=== PATIENT | female | born 1985 | race Two or more races ===

== ENCOUNTER 2023-06-21 21:07 | Emergency (ER) | payer MEDICAID, OTHER ==
[~2023-06-21] VITALS: Ht 170.2 cm; Wt 81.0 kg
[2023-06-21 22:08] LABS: Basophils # (auto) 0.1 10 ^3/uL (0-0.2); Eosinophils # (auto) 0.3 10 ^3/uL (0-0.8); Eosinophils % (auto) 3.3 % (0.0-7.0); Nucleated Red Blood Cells % 0.1 %; White Blood Cell 9.9 10^3/uL (4.4-10.8)
[2023-06-21 22:10] LABS: Basophils % (auto) 0.9 % (0.0-2.0); Hematocrit 32.4 % (36.0-46.0); Hemoglobin 10.1 g/dL (12.2-16.2); Lymphocytes # (auto) 3.5 10 ^3/uL (0.4-5.4); Lymphocytes % (auto) 35.9 % (10.0-50.0); Mean Corpuscular Hemoglobin 24.1 pg (28.0-32.0); Mean Corpuscular Hgb Conc. 31.3 g/dL (32.0-36.0); Mean Corpuscular Volume 77.2 fL (80.0-100.0); Monocytes # (auto) 0.8 10 ^3/uL (0-1.3); Monocytes % (auto) 7.9 % (0.0-12.0); Neutrophils # (auto) 5.1 10 ^3/uL (1.6-8.6); Red Cell Distribution Width 17.2 % (11.8-14.3)
[2023-06-21 22:25] LABS: Alanine Aminotransferase 13 U/L (7-40); Albumin 4.5 g/dL (3.2-4.8); Alkaline Phosphatase 119 U/L (46-116); Anion Gap 10 (5-15); Aspartate Aminotransferase 15 U/L (13-40); BUN/Creatinine Ratio 10.2 (10.0-20.0); Bilirubin, Total 0.3 mg/dL (0.2-1.0); Blood Urea Nitrogen 11 mg/dL (9-23); Calcium 9.2 mg/dL (8.7-10.4); Carbon Dioxide 22 mmol/L (20-30); Chloride 108 mmol/L (98-107); Glucose 91 mg/dL (74-106); Magnesium 1.9 mg/dL (1.6-2.6); Potassium 3.9 mmol/L (3.5-5.1); Sodium 140 mmol/L (136-145); Total Protein 6.9 g/dL (5.7-8.2)
[2023-06-21 22:29] LABS: Urine Bacteria NONE SEEN /hpf (None Seen); Urine Blood Negative /uL (Negative); Urine Clarity Clear (Clear); Urine Color Yellow (Yellow); Urine Protein, UAD TRACE (Negative); Urine Specific Gravity 1.027 (1.001-1.035); Urine WBC 2 /hpf (0 - 5); Urine pH 6.5 (5.0-8.0)
[2023-06-22 01:30] VITALS: BP 135/94; TEMP 98.6
[2023-06-22 01:53] VITALS: PULSE 73; RESP 16; O2SAT 99
[2023-06-22] MEDS ORDERED: ONDANSETRON ODT 4 MG TAB PO ONE (02:00)
[2023-06-22] MEDS ORDERED: HYDROcodone-ACET 10/325MG TAB PO ONE (02:00)
[2023-06-22] MEDS ORDERED: IBUPROFEN 600 MG TAB PO ONE (02:00)
== END 2023-06-22 04:25 | disposition left against medical advice (07) ==
LOC: ER 21:07
DX: R51.9 Headache, unspecified (principal)
CPT/HCPCS: 36415; 80053; 81001; 83735; 84484; 85025; 93005; 99285; Q0162

== ENCOUNTER 2024-10-30 08:10 | Emergency (ER) | payer MEDICAID ==
[~2024-10-30] VITALS: Ht 170.2 cm; Wt 87.9 kg
[2024-10-30 08:51] VITALS: BP 115/83; PULSE 102; RESP 18; TEMP 98.2; O2SAT 99
--- NOTE | 2024-10-30 09:01 | ED.PDOC ---
History of Present Illness(SKN HPI Comments A 39 YEAR OLD FEMALE PRESENTS TO THE ED WITH COMPLAINT OF RASH. PATIENT STATES SHE BEGAN TO EXPERIENCE A GENERALIZED BODY RASH WITH ITCHING THAT STARTED TODAY. PATIENT IS CONCERNED SHE MAY BE HAVING AN ALLERGIC REACTION. PATIENT DENIES FEVER, CHILLS, SHORTNESS OF BREATH, CHEST PAIN, ABDOMINAL PAIN, NAUSEA, VOMITING, HEADACHE, OR OTHER COMPLAINTS. NO OTHER SYMPTOMS OR MODIFYING FACTORS AT THIS TIME. PATIENT IS ALERT, ORIENTED X 4, AND HAS STEADY GAIT. Chief Complaint: Rash Time Seen by MD: 08:29 History of Present Illness: Nurses Notes, Medications, Allergies Allergies: Coded Allergies: Metoclopramide (Verified Allergy, Unknown, 06/21/23) Morphine (Verified Allergy, Unknown, 06/21/23) Home Meds Active Scripts Hydroxyzine Hcl (Hydroxyzine Hcl) 50 Mg Tab, 1 TAB PO BID, #24 TAB Prov:RENATE MARQUEZ 10/30/24 Methylprednisolone (Medrol Dosepak) 4 Mg Gucci, 4 MG PO UD, #21 TAB UAD Prov:RENATE MARQUEZ 10/30/24 Information Source: Patient Mode of Arrival: Ambulatory Severity: Moderate Timing: Days Duration: Since onset, Days Prehospital treatment: None Location: Generalized Mechanism: Spontaneous Onset Developed: Rash Occurence: Indoors Object: None Condition of Object: None Retained Foreign Body: No Wound Type: None Immunization Status of Animal: NA Tetanus: Unknown History of: None Associated Signs and Symptoms: Redness Past Medical History PAST MEDICAL HISTORY: Denies Surgical History: Denies all surgeries CARDIOVASCULAR TECHNICIAN History: No Pertinent CARDIOVASCULAR TECHNICIAN History Family History Family History: Reviewed,noncontributory to illness Social History Smoker: Non-Smoker Alcohol: Denies ETOH Use Drugs: Denies Drug Use Lives In: Home Constitutional: denies: chills, diaphoresis, fatigue, fever, malaise, sweats, weakness, others EENTM: denies: blurred vision, double vision, ear bleeding, ear discharge, ear drainage, ear pain, ear ringing, eye pain, eye redness, hearing loss, mouth pain, mouth swelling, nasal discharge, nose bleeding, nose congestion, nose pain, photophobia, tearing, throat pain, throat swelling, voice changes, others Respiratory: denies: cough, hemoptysis, orthopnea, SOB at rest, shortness of breath, SOB with excertion, stridor, wheezing, others Cardiovascular: denies: chest pain, dizzy spells, diaphoresis, Dyspnea on exertion, edema, irregular heart beat, left arm pain, lightheadedness, palpitations, PND, syncope, others Gastrointestinal: denies: abdomen distended, abdominal pain, blood streaked bowels, constipated, diarrhea, dysphagia, difficulty swallowing, hematemesis, melena, nausea, poor appetite, poor fluid intake, rectal bleeding, rectal pain, vomiting, others Genitourinary: denies: abnormal vagina bleeding, burning, dyspareunia, dysuria, flank pain, frequency, hematuria, incontinence, pain, , vagina discharge, urgency, others Neurological: denies: dizziness, fainting, headache, left sided numbness, left sided weakness, numbness, paresthesia, pre-existing deficit, right sided numbness, right sided weakness, seizure, speech problems, tingling, tremors, weakness, others Musculoskeletal: denies: back pain, gout, joint pain, joint swelling, muscle pain, muscle stiffness, neck pain, others Integumetry: reports: rash; denies: bruises, change in color, change in hair/nails, dryness, laceration, lesions, lumps, wounds, others Allergic/Immunocompromised: reports: Hives, Itching; denies: Difficulty Healing, Frequent Infections, others Hematologic/Lymphatic: denies: anemia, blood clots, easy bleeding, easy bruising, swollen glands, others Endocrine: denies: excessive hunger, excessive sweating, excessive thirst, excessive urination, flushing, intolerance to cold, intolerance to heat, unexplained weight gain, unexplained weight loss, others Psychiatric: denies: anxiety, bipolar disorder, depression, hopeless, panic disorder, schizophrenia, sleepless, suicidal, others All Other Systems: Reviewed and Negative Physical Exam General Appearance: No Apparent Distress, Normal HEENT: Normal ENT Inspection, PERRL/EOMI, Pharynx Normal, TMs Normal Neck: Full Range of Motion, Non-Tender, Normal, Normal Inspection Respiratory: Chest Non-Tender, Lungs Clear, No Accessory Muscle Use, No Respiratory Distress, Normal Breath Sounds Cardiovascular: No Edema, No JVD, No Murmur, No Gallop, Normal Peripheral Pulses, Regular Rate/Rhythm Breast Exam: Deferred Gastrointestinal: No Organomegaly, Non Tender, No Pulsatile Mass, Normal Bowel Sounds, Soft Genitalia: Deferred Pelvic: Deferred Rectal: Deferred Extremities: No calf tenderness, Normal capillary refill, Normal inspection, Normal range of motion, Non-tender, No pedal edema Musculoskeletal : Apperance: Normal Neurologic: Alert, migrant leader II-XII nml as Tested, No Motor Deficits, Normal Affect, Normal Mood, No Sensory Deficits Cerebellar Function: Normal Reflexes: Normal Skin: Dry, Normal Color, Rash (ERYTHEMA SKIN RASH WITH HIVES ON UPPER AND LOWER BODY REGION, NO TENDERNESS AND SWELLING. ), Warm Peripheral Pulses: 2+ carotid (R), 2+ carotid (L), 2+ Radial (R), 2+ Radial (L) Lymphatic: No Adenopathy Was a procedure done? Was a procedure done?: No Differential Diagnosis (INTG) Differential Diagnosis: N/A Differential Diagnosis: Atopic dermatitis, Contact Dermatitis, Scabies, Urt icaria Differential Diagnosis: N/A Abscess: N/A Differential Diagnosis: N/A X-Ray, Labs, Meds, VS Vital Signs Date Time Temp Pulse Resp B/P (MAP) Pulse Ox O2 Delivery O2 Flow Rate FiO2 10/30/24 08:51 102 18 99 Room Air 10/30/24 08:51 98.2 102 18 115/83 (94) 99 98.2 10/30/24 08:26 98.2 102 18 115/83 (94) 99 98.2 Current Medications Medications (Trade) Dose Ordered Sig/Sedrick Route Start Time Stop Time Status Last Admin Epinephrine HCl 0.3 mg ONCE ONCE SC 10/30/24 09:00 10/30/24 09:01 DC 10/30/24 09:04 Diphenhydramine HCl (Benadryl Injection) 50 mg ONCE ONCE IM 10/30/24 09:00 10/30/24 09:01 DC 10/30/24 09:04 X-Ray, Labs, Meds, VS Comment EXTERNAL MEDICAL RECORDS REVIEWED: [NONE] INDEPENDENT HISTORIANS: [NONE] SOCIAL DETERMINANTS OF HEALTH: [NONE] LABS ORDERED: NONE REVIEWED AND INTERPRETED RESULTS: NONE IMAGING ORDERED: NONE TREATMENTS ORDERED: EPINEPHRINE 0.3 MG IM, BENADRYL 50 MG IM PROCEDURES PERFORMED: NONE CRITICAL CARE TIME: NONE I HAVE DISCUSSED THE PATIENT WITH THE ATTENDING PHYSICIAN DR. SANTANA AND HE AGREES WITH THE PATIENT'S PLAN OF CARE AND DISPOSITION. BASED ON HISTORY OF PRESENT ILLNESS, AND PHYSICAL EXAM, PATIENT WILL BE DISCHARGED HOME. DISCUSSED PLAN FOR DISCHARGE HOME WITH RX [PREDNISONE AND VISTARIL 50MG]. MEDICATION WARNINGS GIVEN. SHARED DECISION MAKING: PATIENT INSTRUCTED TO FOLLOW UP WITH PRIMARY CARE PROVIDER IN 1-2 DAYS FOR RE-EVALUATION OF SYMPTOMS. PATIENT VERBALIZES UNDERSTANDING TO RETURN TO ED FOR NEW OR WORSENING SYMPTOMS OR IF FOLLOW UP WITH PCP CANNOT BE OBTAINED. PATIENT FEELS COMFORTABLE GOING HOME AT THIS TIME. ALL QUESTIONS ADDRESSED AT TIME OF DISCHARGE. Time of 1ST Reevaluation: 09:25 Reevaluation 1ST: Improved Patient Education/Counseling: Diagnosis, Treatment, Need For Follow Up Family Education/Counseling: Diagnosis, Treatment, Need For Follow Up Medical Screening: No EMC Exist At This Time Departure 1 Departure Time of Disposition: :30 Impression: Primary Impression: Allergic reaction Qualified Codes: T78.40XA - Allergy, unspecified, initial encounter Disposition: HOME / SELF CARE / HOMELESS Condition: Stable Additional Instructions: FOLLOW-UP WITH PCP IN 1 TO 2 DAYS. TAKE MEDICATIONS PRESCRIBED. RETURN TO ED FOR ANY NEW OR WORSENING SYMPTOMS. e-Prescriptions Hydroxyzine Hcl (Hydroxyzine Hcl) 50 Mg Tab 1 TAB PO BID, #24 TAB Prov: RENATE MARQUEZ 10/30/24 Methylprednisolone (Medrol Dosepak) 4 Mg Gucci 4 MG PO UD, #21 TAB UAD Prov: RENATE MARQUEZ 10/30/24 Discharged With: Self Critical Care Note Critical Care Time?: No Stability Stability form required: No I personally scribed for RENATE MARQUEZ ([email or web address]) on 10/30/24 at 09:01. Electronically submitted by Arias Guevara ([email or web address]). RENATE MARQUEZ Oct 30, 2024 09:01
[2024-10-30] MEDS: diphenhdrAMINE HCL 50 MG/1 ML VL IM ONE (09:04)
[2024-10-30] MEDS: EPINEPHrine HCL 1 MG/1 ML AMP SC ONE (09:04)
[2024-10-30] MEDS ORDERED: METH4PAK PO (09:19)
[2024-10-30] MEDS ORDERED: HYDR50TA69 PO (09:19)
== END 2024-10-30 09:27 | disposition home or self-care (01) ==
LOC: ER 08:10
DX: T78.40XA Allergy, unspecified, initial encounter (principal); Z79.899 Other long term (current) drug therapy; Z88.5 Allergy status to narcotic agent; Z88.8 Allergy status to other drugs, medicaments and biological substances; X58.XXXA Exposure to other specified factors, initial encounter
CPT/HCPCS: 96372; 99284; J0171; J1200

== ENCOUNTER 2025-02-05 08:23 | Emergency (ER) | payer SELFPAY ==
[~2025-02-05] VITALS: Ht 170.2 cm; Wt 85.5 kg
[~2025-02-05 08:23] MED LIST: HYDR50TA69 PO; METH4PAK PO
--- NOTE | 2025-02-05 08:57 | ED.PDOC ---
HPI (NEURO) HPI Comments This is a 40 year old female presents to the ED with chief complaint of dizziness. Patient reports that she has been experiencing intermittent dizziness with a feeling like the room is spinning for the past 2 weeks. Patient relays that she has an associated headache with her dizziness. Patient denies any N/V, chest pain, SOB, fever, chills, nasal congestion, or ear pain. Chief Complaint: Dizziness Time Seen by MD: 08:43 Reviewed Notes: Nurses Notes, Medications, Allergies Information Source: Patient Mode of Arrival: Ambulatory Severity: Moderate Headache Severity: Mild Timing: Weeks Duration: Intermittent Prehospital treatment: None Headache Quality: Aching Headache Location: Generalized Onset: At rest Symptoms: Vertigo Past Medical History PAST MEDICAL HISTORY: Denies Surgical History (Other): Breast augmentation FUR REMODELER History: No Pertinent FUR REMODELER History Family History Family History: Reviewed,noncontributory to illness Social History Smoker: Cigarettes Alcohol: Occasionally Drugs: Denies Drug Use Lives In: Home Constitutional: denies: chills, diaphoresis, fatigue, fever, malaise, sweats, weakness, others EENTM: denies: blurred vision, double vision, ear bleeding, ear discharge, ear drainage, ear pain, ear ringing, eye pain, eye redness, hearing loss, mouth pain, mouth swelling, nasal discharge, nose bleeding, nose congestion, nose pain, photophobia, tearing, throat pain, throat swelling, voice changes, others Respiratory: denies: cough, hemoptysis, orthopnea, SOB at rest, shortness of breath, SOB with excertion, stridor, wheezing, others Cardiovascular: denies: chest pain, dizzy spells, diaphoresis, Dyspnea on exertion, edema, irregular heart beat, left arm pain, lightheadedness, palpitations, PND, syncope, others Gastrointestinal: denies: abdomen distended, abdominal pain, blood streaked bowels, constipated, diarrhea, dysphagia, difficulty swallowing, hematemesis, melena, nausea, poor appetite, poor fluid intake, rectal bleeding, rectal pain, vomiting, others Genitourinary: denies: abnormal vagina bleeding, burning, dyspareunia, dysuria, flank pain, frequency, hematuria, incontinence, pain, , vagina discharge, urgency, others Neurological: reports: dizziness, headache; denies: fainting, left sided numbness, left sided weakness, numbness, paresthesia, pre-existing deficit, right sided numbness, right sided weakness, seizure, speech problems, tingling, tremors, weakness, others Musculoskeletal: denies: back pain, gout, joint pain, joint swelling, muscle pain, muscle stiffness, neck pain, others Integumetry: denies: bruises, change in color, change in hair/nails, dryness, laceration, lesions, lumps, rash, wounds, others Allergic/Immunocompromised: denies: Difficulty Healing, Frequent Infections, Hives, Itching, others Hematologic/Lymphatic: denies: anemia, blood clots, easy bleeding, easy br uising, swollen glands, others Endocrine: denies: excessive hunger, excessive sweating, excessive thirst, excessive urination, flushing, intolerance to cold, intolerance to heat, unexplained weight gain, unexplained weight loss, others Psychiatric: denies: anxiety, bipolar disorder, depression, hopeless, panic disorder, schizophrenia, sleepless, suicidal, others All Other Systems: Reviewed and Negative Physical Exam General Appearance: No Apparent Distress, Normal HEENT: Normal ENT Inspection, Pharynx Normal, TM Abnormal (L), TM Abnormal (R), Other (Nystagmus with fast phase to the left eye. Fluid behind bilateral TMs. Maxillary frontal sinus dullness.) Neck: Full Range of Motion, Non-Tender, Normal, Normal Inspection Respiratory: Chest Non-Tender, Lungs Clear, No Accessory Muscle Use, No Respiratory Distress, Normal Breath Sounds Cardiovascular: No Edema, No JVD, No Murmur, No Gallop, Normal Peripheral Pulses, Regular Rate/Rhythm Breast Exam: Deferred Gastrointestinal: No Organomegaly, Non Tender, No Pulsatile Mass, Normal Bowel Sounds, Soft Genitalia: Deferred Pelvic: Deferred Rectal: Deferred Extremities: No calf tenderness, Normal capillary refill, Normal inspection, Normal range of motion, Non-tender, No pedal edema Musculoskeletal : Apperance: Normal Neurologic: Alert, mailing machine assistant II-XII nml as Tested, No Motor Deficits, Normal Affect, Normal Mood, No Sensory Deficits Cerebellar Function: Normal Reflexes: Normal Skin: Dry, Normal Color, Warm Lymphatic: No Adenopathy Was a procedure done? Was a procedure done?: No Differential Diagnosis (SZ) Headache: Cluster, Migraine, Epidural Hemorrhage, Intracerebral Hemorrhage, Subarachnoid Hemorrhage, Subdural Hemorrhage, Mass Lesion, Meningitis, Sinusitis, Other (bpv, central vertigo,) X-Ray, Labs, Meds, VS Vital Signs Date Time Temp Pulse Resp B/P (MAP) Pulse Ox O2 Delivery O2 Flow Rate FiO2 02/05/25 08:45 87 02/05/25 08:35 97.5 94 18 104/67 (79) 96 97.5 Lab Test 02/05/25 10:00 02/05/25 08:48 Range/Units Urine Test Negative Negative POC Glucose 108 H 70-106 mg/dl Time of 1ST Reevaluation: 09:43 Reevaluation 1ST: Unchanged Patient Education/Counseling: Diagnosis, Treatment, Prognosis, Need For Follow Up Family Education/Counseling: No Family Present Comments pt refused the head ct. her daughter is upset and she would like to leave Additional Information Previous visits reviewed: 10/30/24 for allergic reaction The following tests were ordered, and results were reviewed by me: CT Head, Preg Urine Additional Information was gathered from interviewing the following independent historians: None I reviewed and agreed with the following test results read by other providers: CT Head I discussed treatment and results with medical personnel and: patient Comprehensive systems review obtained and negative except for what is stated in the HPI. Departure 1 Departure Time of Disposition: 11:28 Impression: Primary Impression: Eustachian tube disorder Qualified Codes: H69.93 - Unspecified eustachian tube disorder, bilateral Additional Impressions: Cephalgia Qualified Codes: R51.9 - Headache, unspecified BPV (benign positional vertigo) Qualified Codes: H81.12 - Benign paroxysmal vertigo, left ear Disposition: HOME / SELF CARE / HOMELESS Condition: Stable e-Prescriptions Alprazolam (Xanax) 0.25 Mg Tb 1 TAB PO DAILY PRN for 2 Days, #2 TAB Prov: SARAH CRAFT MD 02/05/25 Ondansetron Odt 4MG Tab (ZOFRAN PO) 4 Mg Tb 4 MG PO Q4HP PRN for 2 Days, #10 TAB ODT TAB-DISSOLVE IN MOUTH, THEN SWALLOW Prov: SARAH CRAFT MD 02/05/25 Meclizine HCl (Meclizine 25) 25 Mg Tab 25 MG PO Q4HP PRN for 3 Days, #15 TAB Prov: SRAAH CRAFT MD 02/05/25 Discharged With: Self Critical Care Note Critical Care Time?: No Stability Stability form required: No Heart Score Heart Score: Heart Score Response (Comments) Value History N/A 0 EKG N/A 0 Age N/A 0 Risk Factors N/A 0 Troponin N/A 0 Total 0 I personally scribed for SARAH CRAFT MD ([email or web address]) on 02/05/25 at 08:57. Electronically submitted by Castro Joshua ([email or web address]). SARAH CRAFT MD Feb 05, 2025 08:57
[2025-02-05] MEDS ORDERED: ZOFR4T PO (11:30)
[2025-02-05] MEDS ORDERED: MECL1TAB42 PO (11:30)
[2025-02-05] MEDS ORDERED: ALPR0.25 PO (11:30)
[2025-02-05] MEDS: MECLIZINE HCL 25 MG TAB PO ONE (11:46)
[2025-02-05] MEDS: ALPRAZolam 0.25 MG TAB PO ONE (11:46)
[2025-02-05] MEDS: ONDANSETRON ODT 4 MG TAB PO ONE (11:47)
[2025-02-05 11:51] VITALS: BP 110/64; PULSE 86; RESP 20; TEMP 97.6; O2SAT 97
--- NOTE | 2025-02-05 12:00 | DVH ---
EXAM: CT HEAD WITHOUT CONTRAST INDICATION: headache, vertigo TECHNIQUE: CT of the head without intravenous contrast. Radiation Dose : 1. Head: CT Dose: CTDI volume is 65.3 mGy. Dose-length product is 1155.97 mGy*cm The dose indicators for CT are the volume Computed Tomography (CT) Dose Index (CTDIvol) and the Dose Length Product (DLP), and are measured in units of mGy and mGy-cm, respectively. These indicators are not patient dose, but values generated from the CT scanner acquisition factors. The report includes radiation exposure data for exposures received during this examination. COMPARISON: None FINDINGS: There is no evidence of acute intracranial hemorrhage, extra-axial collection, mass effect, midline s hift, herniation or hydrocephalus. The ventricles, sulci and cisterns are age appropriate. The thornton-white differentiation is intact. Patchy periventricular and subcortical white matter hypoattenuation is nonspecific but may be related to small vessel ischemic disease. The visualized paranasal sinuses and mastoid air cells are clear. The surrounding soft tissues and osseous structures are unremarkable. IMPRESSION: 1. No acute intracranial abnormality. Radiation optimization: All CT scans at this facility use at least one of these dose optimization fan hniques: automated exposure control mA and/or kV adjustment per patient size (includes targeted exam s where dose is matched to clinical indication) or iterative reconstruction.
--- NOTE | 2025-02-08 12:24 | ECG ---
[facility] Test Date: 2025-02-05 Test Time: 08:45:52 Pat Name: HETAL KAHN Department: ER Room: Gender: F Assistant Press Operator Offset: YOBANY : 1985 Requested By: SARAH CRAFT Order Number: [id number] Reading MD: Yuriy Adams Measurements Intervals [place] Rate: 87 P: 53 AR: 153 QRS: 65 QRSD: 83 T: 52 QT: 357 QTc: 430 Interpretive Statements Sinus rhythm Electronically Signed On 02-08-2025 22:40:41 PDT by Yuriy Adams Please click the below link to view image of tracing.
== END 2025-02-05 11:54 | disposition home or self-care (01) ==
LOC: ER 08:27
DX: H69.93 Unspecified Eustachian tube disorder, bilateral (principal); H81.12 Benign paroxysmal vertigo, left ear; R51.9 Headache, unspecified; F17.210 Nicotine dependence, cigarettes, uncomplicated
CPT/HCPCS: 70450; 81025; 82947; 93005; 99284; J8597; Q0162; 82962

== ENCOUNTER 2025-05-27 09:36 | Emergency (ER) | payer MEDICAID ==
[~2025-05-27] VITALS: Ht 170.2 cm; Wt 88.1 kg
[~2025-05-27 09:36] MED LIST changes: +ALPR0.25 PO; +MECL1TAB42 PO; +ZOFR4T PO
[2025-05-27 09:39] VITALS: BP 126/87; RESP 17; TEMP 97.6; O2SAT 100
[2025-05-27 10:03] VITALS: PULSE 71
--- NOTE | 2025-05-27 10:03 | ED.PDOC ---
Chief Complaint: Chest Pain Time Seen by MD: 10:00 Reviewed Notes: Nurses Notes, Medications, Allergies Allergies: Coded Allergies: Metoclopramide (Verified Allergy, Unknown, 06/21/23) Morphine (Verified Allergy, Unknown, 06/21/23) Home Meds Active Scripts Alprazolam (Xanax) 0.25 Mg Tb, 1 TAB PO DAILY PRN for 2 Days, #2 TAB Prov:SARAH CRAFT MD 02/05/25 Ondansetron Odt 4MG Tab (ZOFRAN PO) 4 Mg Tb, 4 MG PO Q4HP PRN for 2 Days, #10 TAB ODT TAB-DISSOLVE IN MOUTH, THEN SWALLOW Prov:SARAH CRAFT MD 02/05/25 Meclizine HCl (Meclizine 25) 25 Mg Tab, 25 MG PO Q4HP PRN for 3 Days, #15 TAB Prov:SARAH CRAFT MD 02/05/25 Hydroxyzine Hcl (Hydroxyzine Hcl) 50 Mg Tab, 1 TAB PO BID, #24 TAB Prov:RENATE MARQUEZ 10/30/24 Methylprednisolone (Medrol Dosepak) 4 Mg Gucci, 4 MG PO UD, #21 TAB UAD Prov:RENATE MARQUEZ 10/30/24 Information Source: Patient Mode of Arrival: Ambulatory Severity: Moderate Timing: Days Duration: Since onset, Days Prehospital treatment: None Location: Chest (L) Radiation: Arm (L) Quality: Sharp, Pressure Onset: At Rest Cardiac Risk Factors: None PE Risk Factors: None History of: None Associated Signs and Symptoms: None Past Medical History PAST MEDICAL HISTORY: Denies Surgical History (Other): BREAST AUGMUNTATION APPLICATION PACKAGING CONSULTANT History: No Pertinent APPLICATION PACKAGING CONSULTANT History Family History Family History: Reviewed,noncontributory to illness, Unknown Social History Smoker: Cigarettes Alcohol: Occasionally Drugs: Denies Drug Use Lives In: Home Constitutional: denies: chills, diaphoresis, fatigue, fever, malaise, sweats, weakness, others EENTM: denies: blurred vision, double vision, ear bleeding, ear discharge, ear drainage, ear pain, ear ringing, eye pain, eye redness, hearing loss, mouth pain, mouth swelling, nasal discharge, nose bleeding, nose congestion, nose pain, photophobia, tearing, throat pain, throat swelling, voice changes, others Respiratory: denies: cough, hemoptysis, orthopnea, SOB at rest, shortness of breath, SOB with excertion, stridor, wheezing, others Cardiovascular: reports: chest pain, left arm pain; denies: dizzy spells, diaphoresis, Dyspnea on exertion, edema, irregular heart beat, lightheadedness, palpitations, PND, syncope, others Gastrointestinal: denies: abdomen distended, abdominal pain, blood streaked bowels, constipated, diarrhea, dysphagia, difficulty swallowing, hematemesis, melena, nausea, poor appetite, poor fluid intake, rectal bleeding, rectal pain, vomiting, others Genitourinary: denies: abnormal vagina bleeding, burning, dyspareunia, dysuria, flank pain, frequency, hematuria, incontinence, pain, , vagina discharge, urgency, others Neurological: denies: dizziness, fainting, headache, left sided numbness, left sided weakness, numbness, paresthesia, pre-existing deficit, right sided numbness, right sided weakness, seizure, speech problems, tingling, tremors, weakness, others Musculoskeletal: denies: back pain, gout, joint pain, joint swelling, muscle pain, muscle stiffness, neck pain, others Integumetry: denies: bruises, change in color, change in hair/nails, dryness, laceration, lesions, lumps, rash, wounds, others Allergic/Immunocompromised: denies: Difficulty Healing, Frequent Infections, Hives, Itching, others Hematologic/Lymphatic: denies: anemia, blood clots, easy bleeding, easy bruising, swollen glands, others Endocrine: denies: excessive hunger, excessive sweating, excessive thirst, excessive urination, flushing, intolerance to cold, intolerance to heat, unexplained weight gain, unexplained weight loss, others Psychiatric: denies: anxiety, bipolar disorder, depression, hopeless, panic disorder, schizophrenia, sleepless, suicidal, others All Other Systems: Reviewed and Negative EKG EKG : Pulse Rate (adult): 71 Comments Rate of 71 inverted T-waves in 3 AVF and V5 V6 Was a procedure done? Was a procedure done?: No CP Differential Dx Differential Diagnosis: N/A Differential Diagnosis: CHF Differential Diagnosis: Myocardial Infarction X-Ray, Labs, Meds, VS Vital Signs Date Time Temp Pulse Resp B/P (MAP) Pulse Ox O2 Delivery O2 Flow Rate FiO2 10/10/25 10:03 71 05/27/25 09:47 71 05/27/25 09:39 97.6 82 17 126/87 100 97.6 Time of 1ST Reevaluation: 10:30 Reevaluation 1ST: Unchanged Patient Education/Counseling: Diagnosis, Treatment, Prognosis Family Education/Counseling: No Family Present SEPSIS Sepsis Screen Date sepsis recognized/suspect: May 27, 2025 Time Sepsis recognized/suspect: 0943 Recent Procedure: No On Antibiotic Therapy: No Respiratory Rate >20: No Heart Rate >90: No Temp<36 C (96.8 F) or >38.3 C: No SBP <90 or MAP <65 mmHG: No New Acute Mental Status Change: No Is the patient on CPAP, BIPAP,: No Physician Orders Electrocardigram (05/27/25 10:47) Electrocardigram (05/27/25 11:47) Electrocardigram (05/27/25 13:47) Vital Signs Date Time Temp Pulse Resp B/P (MAP) Pulse Ox O2 Delivery O2 Flow Rate FiO2 05/27/25 10:03 71 05/27/25 09:47 71 05/27/25 09:39 97.6 82 17 126/87 100 97.6 Critical Care Note Critical Care Time?: No Stability Stability form required: No Heart Score Heart Score: Heart Score Response (Comments) Value EKG N/A 0 Age <45 0 Risk Factors N/A 0 Troponin N/A 0 Total 0 I personally scribed for JERALD MG MD ([email or web address]) on 05/27/25 at 10:03. Electronically submitted by Lan Wagner ([email or web address]). I personally scribed for JERALD MG MD ([email or web address]) on 05/27/25 at 17:57. Electronically submitted by Lan Wagner ([email or web address]). JERALD MG MD May 27, 2025 10:03
--- NOTE | 2025-06-01 13:14 | ECG ---
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
== END 2025-05-27 11:04 | disposition left against medical advice (07) ==
LOC: ER 09:36
DX: R07.89 Other chest pain (principal); Z53.21 Procedure and treatment not carried out due to patient leaving prior to being seen by health care provider
CPT/HCPCS: 93005